=== PATIENT | male | born 1995 | race Hispanic/Latino ===

== ENCOUNTER → 2020-11-05 | Day surgery (SDC) | payer OTHER ==
[~2020-11-05] MED LIST: FENTANYL CITRATE/PF 100MCG/2 ML INJ ONE; LIDOCAINE HCL 2% LOCAL INJ 5 ML SDV VIAL INJ ONE; METOCLOPRAMIDE HCL 10 MG/2ML VIAL ONE; MIDAZOLAM HCL 2 MG/2 ML VIAL ONE; PANTOPRAZOLE SO40 MG PO; PROPOFOL IV EMULSION 10 MG/ML 20 ML VIAL ONE
[2020-11-05 16:00] VITALS: BP 109/60
== END | disposition home or self-care (01) ==
LOC: ENDO 13:42
PROVIDERS: ATTEND Internal Medicine Gastroenterology
DX: K29.70 Gastritis, unspecified, without bleeding (principal); K21.9 Gastro-esophageal reflux disease without esophagitis; K20.90 Esophagitis, unspecified without bleeding; A04.8 Other specified bacterial intestinal infections; K59.09 Other constipation; Z01.812 Encounter for preprocedural laboratory examination; Z20.822 Contact with and (suspected) exposure to COVID-19; Z87.891 Personal history of nicotine dependence
CPT/HCPCS: 43239; J2001; J2250; J2765; J3010; U0002